=== PATIENT | male | born 1990 | race Caucasian/White ===

== ENCOUNTER 2016-05-31 07:41 | Emergency (ER) | payer BC ==
[2016-05-31 07:51] VITALS: BP 122/71
--- NOTE | 2016-05-31 08:02 | UC ---
Respiratory Complaint HPI - HPI Summary HPI Summary: Cough for two days. HE had a URI - History of Current Complaint Chief Complaint: UCRespiratory Stated Complaint: COUGH SORE THROAT RUNNY NOSE Time Seen by Provider: 05/31/16 07:52 Hx Obtained From: Patient Onset/Duration: Gradual Onset Timing: Constant Severity Initially: Mild Severity Currently: Moderate Character: Cough: Nonproductive Associated Signs And Symptoms: Positive: URI, Nasal Congestion. Negative: Chills, Pleuritic Chest Pain, Calf Swelling, Edema, Sinus Discomfort - Risk Factors Pulmonary Embolism Risk Factors: Negative Cardiac Risk Factors: Negative Pseudomonas Risk Factors: Negative - Allergies/Home Medications Allergies/Adverse Reactions: Allergies Allergy/AdvReac Type Severity Reaction Status Date / Time No Known Allergies Allergy Verified 05/31/16 07:51 PMH/Surg Hx/FS Hx/Imm Hx Endocrine History Of: Denies: Diabetes Respiratory History Of: Reports: Pneumonia - Surgical History Surgical History: Yes Surgery Procedure, Year, and Place: PLATE REPAIR OF FX L humerus - Family History Known Family History: Positive: Hypertension Negative: Respiratory Disease - Social History Occupation: Employed Full-time Lives: With Family Alcohol Use: Occasionally Substance Use Type: None Smoking Status (MU): Never Smoked Tobacco Review of Systems All Other Systems Reviewed And Are Negative: Yes Physical Exam Triage Information Reviewed: Yes Appearance: Well-Appearing, No Pain Distress, Well-Nourished Vital Signs: Initial Vital Signs Temp 98.3 F 05/31/16 07:47 Pulse 57 05/31/16 07:47 Resp 15 05/31/16 07:47 BP 122/71 05/31/16 07:47 Pulse Ox 100 05/31/16 07:47 Vital Signs Reviewed: Yes Eyes: Positive: Conjunctiva Clear. Negative: Conjunctiva Inflamed ENT Exam: Normal ENT: Positive: Normal ENT inspection, Hearing grossly normal, Pharynx normal, TMs normal. Negative: Pharyngeal erythema, Nasal congestion, Nasal drainage, TM bulging, TM dull, TM red, Tonsillar swelling, Tonsillar exudate, Trismus Neck exam: Normal Neck: Positive: Supple, Nontender, No Lymphadenopathy Respiratory Exam: Normal Respiratory: Positive: Chest non-tender, Lungs clear, Normal breath sounds, No respiratory distress, No accessory muscle use. Negative: Respiratory distress, Decreased breath sounds, Accessory muscle use, Crackles, Rhonchi, Stridor Cardiovascular Exam: Normal Cardiovascular: Positive: RRR, No Murmur, Pulses Normal, Brisk Capillary Refill Abdominal Exam: Normal Abdomen Description: Positive: Nontender, No Organomegaly, Soft Musculoskeletal: Positive: Strength Intact, ROM Intact. Negative: No Edema Neurological Exam: Normal Neurological: Positive: Alert, Muscle Tone Normal, Fatigued Psychological Exam: Normal Psychological: Positive: Normal Response To Family Skin Exam: Normal Skin: Negative: rashes UC Diagnostic Evaluation - Laboratory O2 Sat by Pulse Oximetry: 100 Respiratory Course/Dx - Differential Dx/Diagnosis Provider Diagnoses: URI. acute cough Discharge - Discharge Plan Condition: Good Disposition: HOME Prescriptions: Benzonatate CAP* [Tessalon 100 MG CAP*] 100 mg PO TID PRN #20 cap PRN Reason: Cough Patient Education Materials: Upper Respiratory Infection (ED) Referrals: Cassidy BERTRAND,Belinda Cottrell [Primary Care Provider] - If Needed
== END 2016-05-31 08:08 | disposition home or self-care (01) ==
LOC: UCCORT 07:41
DX: J06.9 Acute upper respiratory infection, unspecified (principal); R05 Cough
CPT/HCPCS: 99212; G0463